=== PATIENT | female | born 1955 | race Two or more races ===

== ENCOUNTER 2024-12-06 08:21 | Outpatient (CLI) | payer MEDICARE, OTHER ==
--- NOTE | 2024-12-06 11:30 | RADIOLOGY REPORT ---
Exam: CT CT CHEST ABDOMEN PELVIS History: ABNORMAL WEIGHT LOSS Comparison Study: NoneNone available at time of dictation. Technique: Multidetector spiral CT of the chest, abdomen and pelvis was performed from lower neck to pubic symphysis. Intravenous contrast was administered during this examination. Portal venous imagi ng was obtained. Axial, coronal and sagittal multiplanar reformats were performed by the technologist on a separate workstation. Radiation Dose : 1. Chest/Abdomen/Pelvis: CTDIvol 24 mGy, DLP 1654 mGy*cm. Findings: Lower neck: Normal thyroid. Lungs: Diffuse increased peripheral reticulation most prominent at the lung bases and mild diffuse br onchiectasis. Heart/Vascular Structures: Cardiomegaly. Coronary artery calcifications. Vascular calcifications of t he aorta. Lymph Nodes: No adenopathy Pleura: No pleural effusion or significant pneumothorax. Liver: The liver is normal in size. No focal lesions. Normal hepatic vascular enhancement. Gallbladder and Biliary Tree: Gallbladder is surgically absent. Spleen: Unremarkable Pancreas: The pancreas is normal in appearance without focal lesions or abnormal enhancement. Adrenal Glands: Unremarkable Kidneys: Kidneys demonstrate normal symmetric enhancement without focal lesions, calculi or hydroneph rosis. Punctate 0.1 cm nonobstructing stone in the lower pole of the right kidney. Bladder: Unremarkable Bowel: Large hiatal hernia. Small bowel and colon are normal in caliber and distribution. The append ix is not visualized; however, no secondary findings of acute appendicitis identified. Ascites: Absent Lymphadenopathy: No mesenteric, retroperitoneal or periportal lymphadenopathy. Abdominal Wall and Mesentery: Unremarkable. Vasculature: The visualized abdominal aorta is normal in size and caliber. There is calcified atheros clerotic plaque involving the aorta and its branches. Abdominal and pelvic vessels demonstrate normal enhancement. Pelvic Organs: Unremarkable Musculoskeletal: No aggressive focal bony lesions, acute fractures or dislocation. Left hip arthropla sty. IMPRESSION: Large hiatal hernia. Lung findings are suggestive of pulmonary fibrosis. Punctate 0.1 cm nonobstructing stone in the lower pole of the right kidney.
== END 2024-12-06 23:59 | disposition home or self-care (01) ==
LOC: RAD 08:21
PROVIDERS: ATTEND Physician Assistant Medical
DX: N20.0 Calculus of kidney (principal); K44.9 Diaphragmatic hernia without obstruction or gangrene; R63.4 Abnormal weight loss; Z90.49 Acquired absence of other specified parts of digestive tract; I25.10 Atherosclerotic heart disease of native coronary artery without angina pectoris; I51.7 Cardiomegaly
CPT/HCPCS: 71250; 74176